=== PATIENT | female | born 1995 | race Two or more races ===

== ENCOUNTER 2018-01-12 04:05 | Emergency (ER) | payer OTHER ==
[~2018-01-12] VITALS: Ht 149.9 cm; Wt 43.1 kg
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
--- NOTE | 2018-01-12 04:20 | NUR ---
pt signed waiver
--- NOTE | 2018-01-12 04:44 | NUR ---
XR done at bedside
--- NOTE | 2018-01-12 05:11 | NUR ---
Patient discharged to home in stable condition. Written and verbal after care instructions given. Patient verbalizes understanding of instruction. Patient waiting in the lobby for mother to pick her up to take her back home. VS stable. No s/s of acute distress or sob noted.
[2018-01-12 05:16] VITALS: BP 132/81
== END 2018-01-12 05:17 | disposition home or self-care (01) ==
LOC: ER 04:08
DX: S20.212A Contusion of left front wall of thorax, initial encounter (principal); F43.10 Post-traumatic stress disorder, unspecified; F41.9 Anxiety disorder, unspecified; F32.9 Major depressive disorder, single episode, unspecified; V43.52XA Car driver injured in collision with other type car in traffic accident, initial encounter; Y93.89 Activity, other specified; Y92.413 State road as the place of occurrence of the external cause; Y99.8 Other external cause status
CPT/HCPCS: 71045-TC; A4606; Z7610